=== PATIENT | male | born 2000 | race Two or more races ===

== ENCOUNTER 2023-06-15 19:32 | Emergency (ER) | payer SELFPAY ==
[2023-06-15] MEDS ORDERED: Ketorolac Tromethamine 30 MG (1 mL) VIAL ONE (20:17)
[2023-06-15] MEDS ORDERED: Amoxicillin/Potassium Clav 875 MG TAB ONE (21:31)
== END 2023-06-15 22:00 | disposition home or self-care (01) ==
LOC: MERGE 19:32 → ERS 19:32
DX: S02.601A Fracture of unspecified part of body of right mandible, initial encounter for closed fracture (principal); S02.652A Fracture of angle of left mandible, initial encounter for closed fracture; Z87.891 Personal history of nicotine dependence; Y04.0XXA Assault by unarmed brawl or fight, initial encounter
CPT/HCPCS: 70486; 96372; J1885